=== PATIENT | female | born 1995 | race Caucasian/White ===

== ENCOUNTER 2018-01-10 02:51 | Emergency (ER) | payer OTHER ==
[2018-01-10] MEDS ORDERED: SILVER SULFADIAZINE 1% CREAM 400 GM TP PRN (03:23)
[2018-01-10] MEDS ORDERED: OXYCODONE-ACETAMINOPHEN 5-325 MG TABLET PO ONE ×2 (03:24→03:25)
[2018-01-10] MEDS ORDERED: HYDROCODONE/ACETAMINOPHEN 5-325 MG (6 TAB/ER DISP) PO PRN (03:34)
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
[2018-01-10 04:34] VITALS: BP 131/64
== END 2018-01-10 04:35 | disposition home or self-care (01) ==
LOC: ER 02:51
DX: T24.201A Burn of second degree of unspecified site of right lower limb, except ankle and foot, initial encounter (principal); T21.12XA Burn of first degree of abdominal wall, initial encounter; T23.132A Burn of first degree of multiple left fingers (nail), not including thumb, initial encounter; X10.0XXA Contact with hot drinks, initial encounter
CPT/HCPCS: 99283; J3490